=== PATIENT | female | born 1990 | race Two or more races ===

== ENCOUNTER 2024-10-22 12:19 | Emergency (ER) | payer MEDICAID, SELFPAY ==
[2024-10-22 12:21] VITALS: BMI 25.0
[2024-10-22 12:50] VITALS: BP 105/72; PULSE 97; RESP 16; TEMP 36.9; O2SAT 99; BMI 24.1
--- NOTE | 2024-10-22 12:51 | XR_ITS ---
Examination: Complete OB ultrasound, less than 14 weeks, transabdominal Date and time of exam: October 22, 2024 at 1435 hours INDICATIONS: Vaginal bleeding and pelvic pain onset today Technique: Obstetrical ultrasound images less than 14 weeks performed via transabdominal imaging Findings: A normal shaped single intrauterine gestation is present in the uterus. pole 3.5 cm corresponds to 10 weeks 3 days gestational age Cardiac motion 176 BPM Ultrasonographic survey of visible and placental structures unremarkable. Amniotic fluid volume appears appropriate for this estimated gestational age. Right ovary is obscured by bowel gas Left ovary 3.7 x 2.0 x 3.0 cm arterial flow IMPRESSION: Viable intrauterine gestation 10 weeks 3 days
[2024-10-22 13:13] LABS: Basophils % (Auto) 0 % (0-2.5); Eosinophils # (Auto) 0.1 Thou/mm3 (0.0-0.5); Eosinophils % (Auto) 1 % (0-10); Hemoglobin 12.9 g/dL (12.0-16.0); Immature Granulocytes % (Auto) 0 % (0-0); Immature Granulocytes Auto 0.04 Thou/mm3 (0.00-0.00); Lymphocytes # (Auto) 1.9 Thou/mm3 (1.0-4.8); Lymphocytes % (Auto) 21 % (10-50); Mean Corpuscular HGB Conc 33.9 g/dl (31.0-37.0); Mean Corpuscular Hemoglobin 29.6 pg (25.0-35.0); Mean Corpuscular Volume 87 fL (80-100); Monocytes # (Auto) 0.4 Thou/mm3 (0.0-0.8); Monocytes % (Auto) 4 % (0-12); Neutrophils # (Auto) 6.8 Thou/mm3 (1.8-7.7); Neutrophils % (Auto) 73 % (37-80); Nucleated Red Blood Cell % 0 /100 WBC (0); Platelet Count 371 Thou/mm3 (140-440); RDW Standard Deviation 42.1 fL (36.4-46.3); Red Blood Count 4.36 Miln/mm3 (4.00-5.20); White Blood Count 9.2 Thou/mm3 (3.6-11.0)
[2024-10-22 13:29] LABS: Collection Type, Urine Clean Catch
[2024-10-22 13:36] LABS: Alanine Aminotransferase 14 U/L (10-49); Albumin, Serum 4.8 gm/dL (3.5-5.0); Albumin/Globulin Ratio 1.5 (1.2-2.2); Alkaline Phosphatase 74 U/L (46-116); Anion Gap 9 (7-16); Aspartate Amino Transferase 12 U/L (0-34); BUN/Creatinine Ratio 14 Ratio (12-20); Bilirubin,Total 0.3 mg/dL (0.3-1.2); Blood Urea Nitrogen 10 mg/dL (9-23); Calcium 9.9 mg/dL (8.3-10.6); Calcium (Corrected) 9.9 mg/dL (8.5-10.1); Carbon Dioxide 23.4 mMol/L (20.0-31.0); Chloride 104 mMol/L (98-107); Creatinine (Component) 0.7 mg/dL (0.6-1.3); Estimated Creatinine Clearance 91.3 mL/min (>60); Globulin 3.1 gm/dL (2.3-3.5); Glucose 95 mg/dL (74-106); Osmolality,Calculated 270 (275-295); Sodium 136 mMol/L (136-145); Total Protein 7.9 gm/dL (5.7-8.2); eGFR > 60 See Note
[2024-10-22 13:44] LABS: Bilirubin,Urine Negative (Negative); Blood,Urine Negative (Negative); Clarity,Urine Clear (Clear/Hazy); Color,Urine Yellow (Lt Yel-Yel); Glucose, Urine Negative (Negative); Hyaline Casts,Urine < 1 /hpf (0-1); Ketones,Urine Negative (Negative); Leukocyte Esterase,Urine Positive (Negative); Nitrite,Urine Negative (Negative); Protein,Urine Trace (Neg - Trace); RBC,Urine 5 /hpf (0-3); Specific Gravity,Urine 1.032 (1.001-1.035); Squamous Epithelial Cell,Urine 5 /hpf (0-5); Urobilinogen,Urine Negative mg/dL (0.0-1.0); WBC,Urine 44 /hpf (0-5)
[2024-10-22 14:22] LABS: Beta HCG,Quantitative 115328 mIU/mL (<5.0)
--- NOTE | 2024-10-22 15:05 | EDNOTE_ITS ---
<Statement entered by Poonam New MD - 10/24/24 15:25> As co-signing physician, I was present and available for consult prn. I concur with the plan and care as documented by the midlevel provider. ED Abdominal Pain RME/HPI General Chief Complaint: Abdominal Pain Stated complaint: 11WK PREG AND IS HAVING BACK/ABD PAIN Time seen by provider: 10/22/24 12:51 Arrival date/time: 10/22/24 12:19 34-year-old female presents emergency department complaints of pelvic cramping and lower back pain patient reports being approximately 11 weeks Limitations: no limitations Related Data Previous Rx's ?Medication ?Instructions ?Recorded cephalexin 500 mg capsule 500 mg PO BID 7 days #14 caps 10/22/24 Allergies Allergy/AdvReac Type Severity Reaction Status Date / Time No Known Allergies Allergy Verified 10/22/24 12:23 Review of Systems Review of Systems Systems Reviewed: All systems reviewed, normal except as documented Constitutional Constitutional: Reports system reviewed and no additional complaints, except as documented, Denies fever(s) and Denies headache(s) Eyes Eyes: Reports system reviewed and no additional complaints, except as documented and Denies blurry vision ENT Ears, Nose, Mouth, and Throat: Reports system reviewed and no additional complaints, except as documented, Denies headache(s), Denies nasal congestion and Denies nasal discharge Cardiovascular Cardiovascular: Reports system reviewed and no additional complaints, except as documented, Denies chest pain and Denies dyspnea Respiratory Respiratory: Reports system reviewed and no additional complaints, except as documented, Denies chest congestion, Denies cough and Denies dyspnea Gastrointestinal Gastrointestinal: Reports system reviewed and no additional complaints, except as documented and Denies abdominal pain Genitourinary Genitourinary: Reports system reviewed and no additional complaints, except as documented, Denies abnormal vaginal bleeding and Reports other (Pelvic pain) Integumentary/Breasts Skin/Breast: Reports system reviewed and no additional complaints, except as documented and Denies rash Neurologic Neurologic: Reports system reviewed and no additional complaints, except as documented, Reports as per HPI and Denies headache(s) Past Medical History Social History SMOKING STATUS: Never smoker ED Exam General Limitations: Present no limitations General appearance: Present alert and in no apparent distress Head Head exam: Present atraumatic Eye Eye exam: Present normal appearance, PERRL and EOMI ENT ENT exam: Present normal exam, normal oropharynx and mucous membranes moist Neck Neck exam: Present normal inspection, full ROM and trachea midline Chest Chest inspection: Present normal inspection and symmetric chest wall rise Respiratory Respiratory exam: Present normal lung sounds bilaterally Cardiovascular Cardiovascular exam: Present regular rate, normal rhythm and normal heart sounds Abdominal Exam Abdominal exam: Present soft and normal bowel sounds; Absent distention, tenderness, guarding, rebound or rigidity Extremities Exam Extremities exam: Present normal inspection and full ROM Back Exam Back exam: Present normal inspection and full ROM Neurological Exam Neurological exam: Present alert, oriented X3 and CN II-XII intact Psychiatric Psychiatric exam: Present normal affect and normal mood Skin Skin exam: Present warm, dry, intact and normal color Course Quality Measures none Orders Category Date Time Status US OB <= 14 weeks fetus Stat Exams 10/22/24 12:51 Completed ABO/RH Type Stat Lab 10/22/24 12:57 Completed Beta HCG,Quantitative Stat Lab 10/22/24 12:57 Completed CBC Stat Lab 10/22/24 12:57 Completed Comprehensive Metabolic Panel Stat Lab 10/22/24 12:57 Completed UA [Urinalysis] Stat Lab 10/22/24 13:22 Completed Urine Culture Stat Lab 10/22/24 13:22 Received Vital Signs Vital signs: Vital Signs Temperature 98.5 F 10/22/24 12:50 Pulse Rate 97 10/22/24 12:50 Respiratory Rate 16 10/22/24 12:50 Blood Pressure 105/72 10/22/24 12:50 Pulse Oximetry (%) 99 10/22/24 12:50 Oxygen Delivery Method Room Air 10/22/24 12:50 O2 saturation 99% room air within normal limits Abdominal Pain MDM MDM Narrative MDM Narrative:: 34-year-old female presents emergency department complaints of pelvic cramping and lower back pain patient reports being approximately 11 weeks On exam patient well-appearing patient does not appear ill or toxic in no acute distress Lab work as well as ultrasound obtained lab work unremarkable other than patient has mild UTI patient will treat with course of antibiotics Ultrasound consistent with viable Patient discharged home in no distress 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 the next 24 to 48 hours and for any worsening symptoms to return to the ER immediately Patient data External records reviewed:: [facility] previous records Clinical information provided by:: patient Social determinants that could affect healthcare access:: none Patient has the following chronic illnesses:: None How is presenting disease/condition affected by chronic disease/condition?: no chronic disease Evaluation data The following diagnostics were reviewed and interpreted by me:: lab results and radiology exam(s) Lab and/or radiology exams considered but not ordered:: Labs radiology obtained Interpretation Summary: Reviewed by me Medications / Prescriptions Medications or Prescriptions considered but not ordered:: Given Medication administrations:: Given Consultations Consultation(s) initiated? (list below): No Diagnosis Differential diagnosis abdominal pain: abdominal pain and other (UTI, threatened ) Most likely diagnosis given after review of the tests above:: UTI Admission Indicated Admission indicated?: not indicated Admission Request Was there a request for admission?: No Disposition Plan Disposition Plan: Discharge Discharge Attestation Discharge Attestation: The patient and all family members were given an opportunity to ask questions and understood the discharge instructions. Discharge instructions specifically effects, indications for sooner follow up or return to the emergency department, and the expected course of current diagnosis. Patient condition: Stable Discharge Plan Plan Patient Disposition: HOME (Self Care) Disposition Comment: Stable Prescriptions/Referrals Prescriptions/Med Rec: New cephalexin 500 mg capsule 500 mg PO BID 7 Days Qty: 14 0RF Referrals: Seth Gray MD [Primary Care Provider] - 10/23/24 Problem List Clinical Impression: UTI (urinary tract infection) Patient/Caregiver Discharge Instructions Education Materials: Medicine for Pain Additional Instructions: Please follow up with your primary care doctor in the next 24-48hrs for any worsening symptoms return here immediately Print Language: Danish Stand Alone Forms: Adali Award Info., Patient Portal Info Letter SARAH/JABARI Supervising Physician PA/JABARI Supervising Physician: Dr. New
== END 2024-10-22 15:20 | disposition home or self-care (01) ==
PROVIDERS: Nurse Practitioner Primary Care; Emergency Provider Emergency Medicine; PCP Family Medicine
DX: O23.41 Unspecified infection of urinary tract in pregnancy, first trimester (principal); Z3A.11 11 weeks gestation of pregnancy
CPT/HCPCS: 36415; 76801; 80053; 81001; 84702; 85025; 86900; 86901; 87086; 99284

== ENCOUNTER 2024-12-16 12:36 | Emergency (ER) | payer MEDICAID, SELFPAY ==
[2024-12-16 12:37] VITALS: BMI 24.3
[2024-12-16 12:43] VITALS: BP 123/73; PULSE 93; RESP 19; TEMP 36.9; O2SAT 98
--- NOTE | 2024-12-16 13:12 | XR_ITS ---
Examination: Complete OB ultrasound greater than 14 weeks Date and time of exam: December 16, 2024 1320 hrs. Indications: Vaginal bleeding beginning 3 days ago Findings: Viable intrauterine single fetus with single amniotic sac presentation breech Cardiac motion evident Placenta anterior grade 1 Umbilical cord insertion 3 vessel seen Amniotic fluid index adequate Cervix 3.7 cm Ovaries obscured by bowel gas. Composite estimated gestational age based on BPD, head circumference, abdominal circumference, femur length is 18 weeks 1 day Estimated weight 208 g. Survey of intracranial anatomy, spinal anatomy, abdominal anatomy, four-chamber heart performed with no abnormalities identified. Impression: Viable intrauterine gestation breech presentation Cardiac motion 155 BPM.
--- NOTE | 2024-12-16 13:13 | PD.EDPREG ---
ED OB Contraction Preg RMI/HPI General Chief complaint: OB/Uterine Contractions Stated complaint: 19 weeks. Would like an US. No OBGYN Time Seen by Provider: 12/16/24 13:02 Source: patient Arrival date/time: 12/16/24 12:36 34-year-old female with no known medical history presents to the emergency room with a chief complaint of bilateral pelvic cramping. Patient is currently 19 weeks . Patient denies any vaginal bleeding. Mode of arrival: ambulatory Limitations: no limitations Related Data Previous Rx's ?Medication ?Instructions ?Recorded cephalexin 500 mg capsule 500 mg PO BID 7 days #14 caps 12/16/24 Allergies Allergy/AdvReac Type Severity Reaction Status Date / Time No Known Allergies Allergy Verified 10/22/24 12:23 Review of Systems Review of Systems Systems Reviewed: All systems reviewed, normal except as documented Constitutional Constitutional: Reports system reviewed and no additional complaints, except as documented, Denies fatigue, Denies fever(s), Denies headache(s) and Denies weakness Eyes Eyes: Reports system reviewed and no additional complaints, except as documented, Denies blurry vision and Denies change in vision ENT Ears, Nose, Mouth, and Throat: Reports system reviewed and no additional complaints, except as documented, Denies otalgia, Denies headache(s), Denies nasal congestion, Denies throat swelling and Denies vertigo Cardiovascular Cardiovascular: Reports system reviewed and no additional complaints, except as documented, Denies chest pain, Denies dyspnea and Denies dyspnea on exertion Respiratory Respiratory: Reports system reviewed and no additional complaints, except as documented, Denies chest congestion, Denies cough, Denies dyspnea, Denies dyspnea on exertion and Denies wheezing Gastrointestinal Gastrointestinal: Reports abdominal pain and Reports cramping Genitourinary Genitourinary: Reports system reviewed and no additional complaints, except as documented Musculoskeletal Musculoskeletal: Reports system reviewed and no additional complaints, except as documented and Denies back pain Integumentary/Breasts Skin/Breast: Reports system reviewed and no additional complaints, except as documented and Denies wounds Neurologic Neurologic: Reports system reviewed and no additional complaints, except as documented, Denies confusion, Denies headache(s), Denies lack of coordination, Denies vertigo and Denies weakness Psychiatric Psychiatric: Reports system reviewed and no additional complaints, except as documented, Denies anxiety, Denies confusion, Denies depression, Denies paranoia, Denies suicidal ideation and Denies tactile hallucinations Endocrine Endocrine: Reports system reviewed and no additional complaints, except as documented and Denies fatigue Hematologic/Lymphatic Hematologic/Lymphatic: Reports system reviewed and no additional complaints, except as documented and Denies lymphadenopathy Allergic/Immunologic Allergic/Immunologic: Reports system reviewed and no additional complaints, except as documented, Denies throat swelling, Denies urticaria and Denies wheezing Past Medical History Social History SMOKING STATUS: Never smoker ED Exam General Limitations: Present no limitations General appearance: Present alert and in no apparent distress Head Head exam: Present atraumatic Eye Eye exam: Present normal appearance, PERRL and EOMI ENT ENT exam: Present normal exam, normal oropharynx and mucous membranes moist Neck Neck exam: Present normal inspection, full ROM and trachea midline Chest Chest inspection: Present normal inspection and symmetric chest wall rise Respiratory Respiratory exam: Present normal lung sounds bilaterally Cardiovascular Cardiovascular exam: Present regular rate, normal rhythm and normal heart sounds Abdominal Exam Abdominal exam: Present soft, tenderness and normal bowel sounds Abdominal tenderness: Present RLQ, LLQ, suprapubic and mild Extremities Exam Extremities exam: Present normal inspection and full ROM Back Exam Back exam: Present normal inspection and full ROM Neurological Exam Neurological exam: Present alert, oriented X3 and CN II-XII intact Psychiatric Psychiatric exam: Present normal affect and normal mood Skin Skin exam: Present warm, dry, intact and normal color Course Quality Measures none Orders Category Date Time Status US OB >= 14 weeks Fetus Stat Exams 12/16/24 13:12 Completed ABO/RH Type Stat Lab 12/16/24 15:07 Completed Beta HCG,Quantitative Stat Lab 12/16/24 15:07 Completed CBC Stat Lab 12/16/24 15:07 Completed CMP [Comprehensive Metabolic Panel] Stat Lab 12/16/24 15:07 Completed UA [Urinalysis] Stat Lab 12/16/24 13:34 Completed Vital Signs Vital signs: Vital Signs Temperature 98.5 F 12/16/24 12:43 Pulse Rate 93 12/16/24 12:43 Respiratory Rate 19 12/16/24 12:43 Blood Pressure 123/73 12/16/24 12:43 Pulse Oximetry (%) 98 12/16/24 12:43 Oxygen Delivery Method Room Air 12/16/24 12:43 OB/Uterine Contractions MDM Narrative MDM Narrative:: 34-year-old female with no known medical history presents to the emergency room with a chief complaint of bilateral pelvic cramping. Patient is currently 19 weeks . Patient denies any vaginal bleeding. Patient is hemodynamically stable and in no apparent distress Physical examination shows bilateral pelvic cramping. Patient denies any vaginal bleeding vaginal discharge. Ultrasound OB was completed and shows a viable at 18 weeks and 1 day. heart tones are 155 bpm. hCG levels are at 11,471 Urinalysis shows a urinary tract infection. Antibiotics are sent to the patient's pharmacy Patient was discharged and educated to follow-up with primary care provider in the next 24 to 48 hours and return to the emergency room for any evidence of worsening signs or symptoms Patient data External records reviewed:: [facility] previous records Clinical information provided by:: patient Social determinants that could affect healthcare access:: none Patient has the following chronic illnesses:: No chronic illness How is presenting disease/condition affected by chronic disease/condition?: no chronic disease Evaluation data The following diagnostics were reviewed and interpreted by me:: lab results and radiology exam(s) Lab and/or radiology exams considered but not ordered:: Labs and radiology exams considered and ordered Interpretation Summary: Ultrasound OB-Findings: Viable intrauterine single fetus with single amniotic sac presentation breech Cardiac motion evident Placenta anterior grade 1 Umbilical cord insertion 3 vessel seen Amniotic fluid index adequate Cervix 3.7 cm Ovaries obscured by bowel gas. Composite estimated gestational age based on BPD, head circumference, abdominal circumference, femur length is 18 weeks 1 day Estimated weight 208 g. Survey of intracranial anatomy, spinal anatomy, abdominal anatomy, four-chamber heart performed with no abnormalities identified. Impression: Viable intrauterine gestation breech presentation Cardiac motion 155 BPM. Medications / Prescriptions Medications or Prescriptions considered but not ordered:: No medication given Medication administrations:: No medication given Consultations Consultation(s) initiated? (list below): No Diagnosis OB Contractions Differential Diagnosis: other (Urinary tract infection/spontaneous /vaginal bleeding/ectopic ) Most likely diagnosis given after review of the tests above:: Urinary tract infection Admission Indicated Admission indicated?: not indicated Explain why admission is indicated or not indicated:: N/A Admission Request Was there a request for admission?: No Disposition Plan Disposition Plan: Discharge Discharge Attestation Discharge Attestation: The patient and all family members were given an opportunity to ask questions and understood the discharge instructions. Discharge instructions specifically effects, indications for sooner follow up or return to the emergency department, and the expected course of current diagnosis. 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 Your heart tones are 155 bpm Your urinalysis showed a urinary tract infection. Antibiotics are sent to your pharmacy please pick them up and take them as indicated. For any evidence of worsening signs or symptoms return to the emergency room immediately Print Language: Amharic Stand Alone Forms: Adali Award Info., Patient Portal Info Letter SARAH/JABARI Supervising Physician SARAH/JABARI Supervising Physician: Dr. Thompson
[2024-12-16 13:45] LABS: Collection Type, Urine Clean Catch
[2024-12-16 13:59] LABS: Bacteria,Urine 2+; Bilirubin,Urine Negative (Negative); Blood,Urine Negative (Negative); Clarity,Urine Turbid (Clear/Hazy); Color,Urine Yellow (Lt Yel-Yel); Glucose, Urine Negative (Negative); Ketones,Urine Negative (Negative); Leukocyte Esterase,Urine Positive (Negative); Nitrite,Urine Negative (Negative); PH,Urine 5.5 (5.0-7.0); Protein,Urine Trace (Neg - Trace); RBC,Urine 12 /hpf (0-3); Specific Gravity,Urine 1.031 (1.001-1.035); Squamous Epithelial Cell,Urine 4 /hpf (0-5); Urobilinogen,Urine Negative mg/dL (0.0-1.0); WBC,Urine 57 /hpf (0-5)
[2024-12-16 15:47] LABS: Basophils % (Auto) 0 % (0-2.5); Eosinophils # (Auto) 0.1 Thou/mm3 (0.0-0.5); Eosinophils % (Auto) 1 % (0-10); Hematocrit 34.2 % (36.0-46.0); Hemoglobin 11.8 g/dL (12.0-16.0); Immature Granulocytes % (Auto) 1 % (0-0); Immature Granulocytes Auto 0.07 Thou/mm3 (0.00-0.00); Lymphocytes # (Auto) 2.2 Thou/mm3 (1.0-4.8); Lymphocytes % (Auto) 21 % (10-50); Mean Corpuscular HGB Conc 34.5 g/dl (31.0-37.0); Mean Corpuscular Hemoglobin 30.5 pg (25.0-35.0); Mean Corpuscular Volume 88 fL (80-100); Monocytes # (Auto) 0.4 Thou/mm3 (0.0-0.8); Monocytes % (Auto) 4 % (0-12); Neutrophils # (Auto) 7.5 Thou/mm3 (1.8-7.7); Neutrophils % (Auto) 73 % (37-80); Nucleated Red Blood Cell % 0 /100 WBC (0); Platelet Count 370 Thou/mm3 (140-440); RDW Standard Deviation 43.3 fL (36.4-46.3); Red Blood Count 3.87 Miln/mm3 (4.00-5.20); White Blood Count 10.3 Thou/mm3 (3.6-11.0)
[2024-12-16 16:48] LABS: Alanine Aminotransferase 21 U/L (10-49); Albumin, Serum 4.2 gm/dL (3.5-5.0); Albumin/Globulin Ratio 1.4 (1.2-2.2); Alkaline Phosphatase 65 U/L (46-116); Anion Gap 9 (7-16); Aspartate Amino Transferase 14 U/L (0-34); BUN/Creatinine Ratio 14 Ratio (12-20); Beta HCG,Quantitative 11471 mIU/mL (<5.0); Bilirubin,Total 0.3 mg/dL (0.3-1.2); Blood Urea Nitrogen 7 mg/dL (9-23); Calcium 9.5 mg/dL (8.3-10.6); Calcium (Corrected) 9.5 mg/dL (8.5-10.1); Carbon Dioxide 21.6 mMol/L (20.0-31.0); Chloride 107 mMol/L (98-107); Creatinine (Component) 0.5 mg/dL (0.6-1.3); Estimated Creatinine Clearance 138.2 mL/min (>60); Globulin 3.1 gm/dL (2.3-3.5); Glucose 78 mg/dL (74-106); Osmolality,Calculated 272 (275-295); Potassium 3.6 mMol/L (3.4-5.1); Sodium 138 mMol/L (136-145); Total Protein 7.3 gm/dL (5.7-8.2); eGFR > 60 See Note
== END 2024-12-16 17:21 | disposition home or self-care (01) ==
PROVIDERS: Nurse Practitioner Family; Emergency Provider Emergency Medicine; PCP Obstetrics & Gynecology
DX: O23.42 Unspecified infection of urinary tract in pregnancy, second trimester (principal); O32.1XX0 Maternal care for breech presentation, not applicable or unspecified; Z3A.19 19 weeks gestation of pregnancy
CPT/HCPCS: 36415; 76805; 80053; 81001; 84702; 85025; 86900; 86901; 99284

== ENCOUNTER 2025-03-24 20:06 | Observation (INO) | payer MEDICAID, SELFPAY ==
[2025-03-24 20:14] VITALS: TEMP 36.8
[2025-03-24 20:15] VITALS: BP 122/77; PULSE 88
--- NOTE | 2025-03-24 20:34 | XR_ITS ---
Examination: Complete OB ultrasound greater than 14 weeks Date and time of exam: March 24, 2025 2038 hours INDICATIONS: Onset vaginal bleeding today Findings: Viable intrauterine single fetus with single amniotic sac presentation cephalic Cardiac motion 150 BPM Placenta anterior grade 2 Umbilical cord insertion 3 vessel seen Amniotic fluid index 10.3 cm spine maternal right Cervix 3.2 cm Ovaries obscured by bowel gas. Composite estimated gestational age based on BPD, head circumference, abdominal circumference, femur length is 32 weeks 3 days Estimated weight 1904 g. Survey of intracranial anatomy, spinal anatomy, abdominal anatomy, four-chamber heart performed with no abnormalities identified. Impression: Viable intrauterine gestation cephalic presentation.
[2025-03-24 20:41] VITALS: BP 122/77; PULSE 90; RESP 100; RESP 19; TEMP 36.8; BMI 29.1
[2025-03-24 21:35] VITALS: BP 106/62; PULSE 80
[2025-03-24 21:50] LABS: Amphetamine/Metham Scrn,Ur OB Negative (Negative); Benzoylecgonine Screen, Ur OB Negative (Negative); Opiate Screen,Urine OB Negative (Negative); THC Screen,Urine OB Negative (Negative)
[2025-03-24 22:05] VITALS: BP 104/54; PULSE 78
[2025-03-24 22:35] VITALS: BP 107/53; PULSE 81
[2025-03-24 22:38] LABS: ROM Kit Lot # 578010271
[2025-03-24 22:39] LABS: ROM Swab Mixed By: BF; Rupture of Fetal Membranes Negative (Negative); Swb Mxed in Solvent 1 min? Yes
== END 2025-03-24 23:25 | disposition home or self-care (01) ==
PROVIDERS: Admitting Provider Obstetrics & Gynecology; Visit Provider Obstetrics & Gynecology
DX: O46.93 Antepartum hemorrhage, unspecified, third trimester (principal); Z3A.32 32 weeks gestation of pregnancy
CPT/HCPCS: 59025; 59899; 76805; 80307; 84112; 87081

== ENCOUNTER 2025-05-13 04:02 | Inpatient (IN) | payer MEDICAID, SELFPAY ==
[2025-05-13] VITALS (97 sets, daily range): BP systolic 98–138; BP diastolic 50–80; PULSE 66–166; RESP 16–99; TEMP 36.1–37; O2SAT 84–100; BMI 29.0
--- NOTE | 2025-05-13 04:26 | XR_ITS ---
Examination: Complete OB ultrasound greater than 14 weeks Date and time of exam: May 13, 2025 0451 hours INDICATIONS: Vaginal bleeding beginning a few hours ago Findings: Viable intrauterine single fetus with single amniotic sac presentation cephalic Cardiac motion 147 BPM Placenta anterior grade 3 Umbilical cord insertion 3 vessel seen Amniotic fluid index 6.9 cm Cervix 3.6 cm Ovaries obscured by bowel gas. Composite estimated gestational age based on BPD, head circumference, abdominal circumference, femur length is 38 weeks 6 days Estimated weight 3478.9 g. Survey of intracranial anatomy, spinal anatomy, abdominal anatomy, four-chamber heart performed with no abnormalities identified. Impression: Viable intrauterine gestation cephalic presentation Placenta anterior grade 3 no abruption.
[2025-05-13] MEDS: RINGERS LACTATED 1000 ML 1,000 ML 100 ML IV ×3 (04:35→10:52)
[2025-05-13 04:57] LABS: Basophils # (Auto) 0.1 Thou/mm3 (0.0-0.2); Basophils % (Auto) 1 % (0-2.5); Eosinophils # (Auto) 0.1 Thou/mm3 (0.0-0.5); Eosinophils % (Auto) 1 % (0-10); Hematocrit 34.7 % (36.0-46.0); Hemoglobin 11.6 g/dL (12.0-16.0); Immature Granulocytes Auto 0.09 Thou/mm3 (0.00-0.00); Lymphocytes # (Auto) 2.8 Thou/mm3 (1.0-4.8); Lymphocytes % (Auto) 24 % (10-50); Mean Corpuscular HGB Conc 33.4 g/dl (31.0-37.0); Mean Corpuscular Hemoglobin 30.2 pg (25.0-35.0); Mean Corpuscular Volume 90 fL (80-100); Monocytes # (Auto) 0.5 Thou/mm3 (0.0-0.8); Monocytes % (Auto) 5 % (0-12); Neutrophils # (Auto) 8.1 Thou/mm3 (1.8-7.7); Neutrophils % (Auto) 70 % (37-80); Nucleated Red Blood Cell # 0.00 Thou/mm3 (0.00-0.00); Nucleated Red Blood Cell % 0 /100 WBC (0); Platelet Count 329 Thou/mm3 (140-440); RDW Standard Deviation 45.6 fL (36.4-46.3); Red Blood Count 3.84 Miln/mm3 (4.00-5.20); White Blood Count 11.7 Thou/mm3 (3.6-11.0)
--- NOTE | 2025-05-13 05:45 | PC.NURSE ---
045 Consents signed using learning center instructor Mandy DE LEON1
--- NOTE | 2025-05-13 06:00 | PD.LDHP ---
Documentation for date of: 05/13/25 OB Labor/Induct. HPI History of Present Illness Chief complaint: Leaking and contractions. : 6 Para: 3 Term pregnancies: 3 pregnancies: 0 Living children: 3 History of Abortions: Spontaneous and Elective: 2 History of Vaginal deliveries: 3 History of sections: No History of : No Date of last menstrual period: 07/16/24 JUNIOR: 05/16/25 Gestational Age (weeks): 39 Gestational Age (days): 4 Gestational age based on last menstrual period: 43 History of present illness: 34 yo IUP 39w4d has care with Dr Pierce present to FLU at 0400 complaining of contractions and leaking since 21:00 yesterday. No vaginal bleeding. Normal movement. PNC complicated by first trimester subchorionic hemorrhage. EDC confirmed by a 7 week TVS. US today shows EFW 3579g and Cephalic. Comments: OB Hx x 2 at term, Miscarriage at 20 weeks. PSHx : D and C PMHx: Anxiety, Depression, PTSD, Chlamydia FHx: HTN, Endometrial Cancer, CVA Social Hx: Denies any ETOH, Drug use or SMO History of Present Adequate Care: Yes Labs Labs: Negative: RPR, Hepatitis B, Rubella Titre, HIV, Chlamydia, Gonorrhea and Group Beta Strep and Unknown: Herpes Type 1 and Herpes Type 2 Review of Systems Review of Systems Narrative Review of Systems: Denies chest pain, palpitations, shortness of breath, flank pain, fever, cough or lower extremity pain . Past Medical History Surgical History SURGICAL: Negative Section Meds Home Medications and Allergies Home Medications ?Medication ?Instructions ?Recorded ?Confirmed ?Type No Known Home Medications 05/13/25 05/13/25 History Allergies Allergy/AdvReac Type Severity Reaction Status Date / Time No Known Allergies Allergy Verified 05/13/25 04:45 OB Exam Physical Exam Vital signs: Temp Pulse Resp BP 96.9 F 72 18 109/65 05/13/25 05:16 05/13/25 05:51 05/13/25 04:15 05/13/25 05:51 Routine HEENT Exam Comments: Oropharynx sclera clear. Routine Respiratory Exam Comments: CTA B/L Routine Cardiovascular Exam Comments: RRR Routine Abdominal Exam Comments: gravid term size with EFW 3579g. Detailed Labor and Delivery Exam Dilation (cm): 2 Effacement (%): 60 station: -3 Presentation: Vertex Membranes: ruptured Comments: Per RN exam. Routine Extremities Exam Comments: Nontender Routine Skin Exam Comments: No gross rashes or lesions Routine Neurological Exam Comments: No focal deficit OB Results Labs 05/13/25 04:35 Labs: Short CBC 05/13/25 Range/Units 04:35 WBC 11.7 H (3.6-11.0) Thou/mm3 Hgb 11.6 L (12.0-16.0) g/dL Hct 34.7 L (36.0-46.0) % Plt Count 329 (140-440) Thou/mm3 Impressions Impression: IUP 39w4d SROM at 21:00 on 05/12 Not in Labor Cervical ripening with oral Cytotec followed by Pitocin Anticipate Informed Consent Obtained: Pt made aware of the risks and complications of OVD and C/S and agrees with these mode of delivery if indicated.
--- NOTE | 2025-05-13 06:04 | PRELIM_ITS ---
Obstetric ultrasound. May 13, 2025 0451 hours Clinical history: COMPLETE OB U/S No prior study is available for comparison. Findings: There is a gravid uterus with a live fetus in cephalic presentation of mean gestational age 38 weeks and 6 days (by biometry). cardiac activity is present at a heart rate of 147 beats per minute. The placenta is anterior in location, maturity grade 3. There is no evidence of placenta previa or retroplacental hemorrhage. Amniotic fluid is adequate (CAROL = 6.9 cm). Estimated weight is 3478.9 grams+/- 515 grams. Estimated due date by ultrasound is 05/21/2025. Cervical length is 3.6 cm. Ovaries are not seen due to gestation age. Impression: Gravid uterus with a single live fetus in cephalic presentation of mean gestational age 38 weeks 6 days. Report Electronically Signed By: Aiyana Gonzalez 05/13/2025 6:03:49 AM [EST]
[2025-05-13 06:35] LABS: Syphilis Nonreactive (Nonreactive)
[2025-05-13] MEDS: fentaNYL CIT INJ 50 mCg/ML AMP 2ML 100 MCG IVP ×2 (07:55→11:31)
[2025-05-13] MEDS: FAMOTIDINE INJ 10 MG/ML VIAL 2 ML 20 MG IV (16:20)
[2025-05-13] MEDS: ceFAZolin/D5W 2 GM IV 2 GM/100 ML BAG IV (16:20)
[2025-05-13] MEDS: MINERAL OIL 30 ML UDC TOP (16:32)
[2025-05-13] MEDS: OXYTOCIN in NS 20 units 20 UNIT/1,000 ML BAG 125 UNIT IV (16:33)
[2025-05-13] MEDS: TRANEXAMIC ACID 1,000 MG IVPB 1,000 MG/100 ML BAG 200 MG IV (16:35)
--- NOTE | 2025-05-13 16:48 | PD.LDDELS ---
Data ([place]) Data Hx Section: No : 6 Term: 3 : 0 Livin Abortions: Spontaneous & Theraputic: 2 Delivery Data ([place]) Labor Data Initiation of labor: Induction Induction/Augmentation Agent: Cytotec-PO ROM date: 05/12/25 ROM time: 21:00 Amniotic membrane rupture type: Spontaneous Amniotic fluid description: Clear Delivery Data Onset of labor date: 05/12/25 Onset of labor time: 21:00 Complete dilation date: 05/13/25 Complete dilation time: 16:30 delivery date: 05/13/25 delivery time: 16:33 Placenta delivery date: 05/13/25 Placenta delivery time: 16:35 Stage 1 total time: Labor - Stage 1 Duration 19 hours and 30 minutes Delivered by: Gallo Lugo Pillar Man at delivery: No Delivery Method Delivery method: Normal Vaginal Delivery Presentation: Vertex position: CHARLES Anesthesia Type Anesthesia Type: Epidural Delivery Room Medications Delivery room medications: Pitocin 20 u IV Placenta Placenta delivery description: Spontaneous Cord blood sent to lab: Yes cord blood collection: Cord Blood Type Episiotomy Episiotomy description: None Lacerations #1: Perineal: 1st degree Periurethral: Left periurethral Perineal repair Sutures used for repair: 3.0 Vicryl EBL Estimated blood loss (ml): 250 Umbilical Cord cord description: 3 Vessels Data ([place]) [place] Data [place]'s gender: Male 1 minute: 9 5 minutes: 9
[2025-05-13] MEDS: BENZO/LANO/ALOE (Dermoplast) 60 GM CAN 1 SPRAY TOP (16:57)
[2025-05-13] MEDS: IBUPROFEN TAB 400 MG TABLET 800 MG PO (20:01)
[2025-05-14] MEDS: ACETAMINOPHEN 325 MG TABLET 650 MG PO ×2 (01:12→07:13)
[2025-05-14] MEDS: IBUPROFEN TAB 400 MG TABLET 800 MG PO ×2 (03:46→14:54)
[2025-05-14 04:00] VITALS: BP 108/65; PULSE 86; RESP 16; TEMP 37.1
[2025-05-14 07:05] LABS: Basophils # (Auto) 0.0 Thou/mm3 (0.0-0.2); Basophils % (Auto) 0 % (0-2.5); Eosinophils # (Auto) 0.1 Thou/mm3 (0.0-0.5); Eosinophils % (Auto) 1 % (0-10); Hematocrit 32.8 % (36.0-46.0); Hemoglobin 11.0 g/dL (12.0-16.0); Immature Granulocytes Auto 0.09 Thou/mm3 (0.00-0.00); Lymphocytes # (Auto) 2.4 Thou/mm3 (1.0-4.8); Lymphocytes % (Auto) 15 % (10-50); Mean Corpuscular HGB Conc 33.5 g/dl (31.0-37.0); Mean Corpuscular Hemoglobin 30.3 pg (25.0-35.0); Mean Corpuscular Volume 90 fL (80-100); Monocytes # (Auto) 0.7 Thou/mm3 (0.0-0.8); Monocytes % (Auto) 4 % (0-12); Neutrophils # (Auto) 12.5 Thou/mm3 (1.8-7.7); Neutrophils % (Auto) 79 % (37-80); Nucleated Red Blood Cell # 0.00 Thou/mm3 (0.00-0.00); Nucleated Red Blood Cell % 0 /100 WBC (0); Platelet Count 292 Thou/mm3 (140-440); RDW Standard Deviation 45.8 fL (36.4-46.3); Red Blood Count 3.63 Miln/mm3 (4.00-5.20); White Blood Count 15.8 Thou/mm3 (3.6-11.0)
[2025-05-14 08:00] VITALS: BP 102/68; PULSE 80; RESP 16; TEMP 36.7; O2SAT 99
[2025-05-14] MEDS: DOCUSATE SOD 100 MG CAPSULE PO (08:26)
[2025-05-14 12:00] VITALS: BP 111/70; PULSE 79; RESP 16; TEMP 36.8; O2SAT 98
--- NOTE | 2025-05-14 15:36 | PC.NURSE ---
cleared by Raf from social service
[2025-05-14 15:53] VITALS: BP 121/75; PULSE 87; RESP 18; TEMP 36.7; O2SAT 98
--- NOTE | 2025-05-14 16:28 | PC.SS ---
DIRECTOR OF ROOMS conducted bedside contact with the patient to address nursing referral indicating patient possessed history of anxiety.? DIRECTOR OF ROOMS introduced self and role.? At bedside with patient was Stevo MORA.? Patient gave permission for FOB to be present during discussion.? Patient confirmed history of anxiety.? Patient informed DIRECTOR OF ROOMS of participation with counseling to address mood disorder.? Patient has been participating with therapy for approximately 1 year.? Patient has not been prescribed medication to address anxiety.? Per patient, level of anxiety has not impaired daily functioning.? Patient denies history of self-harm behaviors or psychiatric placement.? Patient?s partner confirmed that patient?s level of anxiety is not impacting daily functioning in an adverse manner.? Infant, Chandler; is the patient?s 4th child.? Other children ages 16, 15 and 4 years old.? Infant delivered naturally.? Patient interacting appropriately with .? OB services provided by [facility].? Patient reports compliance with OB appointments.? Patient plans on breast feeding the .? Patient is aligned with WIC, SNAP and TANF.? Patient denies history of alcohol/drug abuse.? Patient denies episodes of domestic violence.? Patient denies history of CWS intervention.? Patient has access to appropriate supplies and equipment.? Patient has access to car seat.? FOB will provide transportation upon discharge.? Patient describes possessing support system consisting of FOB and extended family.? DIRECTOR OF ROOMS provided community resources to include [employer] and [employer].? No further intervention required at this time, social security benefits interviewer will be available to address any further concerns.? DIRECTOR OF ROOMS updated bedside nurse.?
[2025-05-14 19:47] VITALS: BP 123/81; PULSE 76; RESP 16; TEMP 36.8; O2SAT 98
--- NOTE | 2025-05-14 20:21 | ESPR_ITS ---
Subjective Subjective Interval history: The patient is a 34-year-old G6 now P4014 status post vaginal delivery by Dr. Lugo around 5 PM yesterday. All care is Dr. Pierce. She is resting comfortably in bed. She is day #1, she is breast-feeding her baby and wearing her own pajamas. Her father the baby is at bedside. She is Swedish-speaking only and her entire physical exam and interview was conducted with the theatrical variety agent at bedside. Patient denies any heavy bleeding. Her pain is controlled with oral pain medication she is voiding ambulating and tolerating a general diet. Her labs and vital signs are stable. Exam Vital Signs Temp Pulse Resp BP Pulse Ox O2 Del Method 98.2 F 76 16 123/81 98 Room Air 05/14/25 19:47 05/14/25 19:47 05/14/25 19:47 05/14/25 19:47 05/14/25 19:47 05/14/25 19:47 Narrative Exam Fundus firm at umbilicus extremities show no significant edema or erythema Objective Labs 05/14/25 06:50 Labs: Laboratory Results - last 24 hr 05/14/25 06:50 WBC 15.8 H RBC 3.63 L Hgb 11.0 L Hct 32.8 L MCV 90 MCH 30.3 MCHC 33.5 RDW Std Deviation 45.8 Plt Count 292 D Neut % (Auto) 79 Lymph % (Auto) 15 [place] % (Auto) 4 Eos % (Auto) 1 Baso % (Auto) 0 Neut # (Auto) 12.5 H Lymph # (Auto) 2.4 [place] # (Auto) 0.7 Eos # (Auto) 0.1 Baso # (Auto) 0.0 Immature Gran # (Auto) 0.09 H Absolute Nucleated RBC 0.00 Immature Gran % 1 H Nucleated RBC % 0 Assessment & Plan Problem List (1) care following vaginal delivery: Problem details: Patient will be discharged day #1 in stable condition. Discharge instructions included pelvic rest x 6 weeks. Call for heavy bleeding, fevers, chills, severe depression. Follow-up with Dr. Pierce for care. Status: Acute Time Spent With Patient Time: Total time spent is greater than 50% in coordination of care (as documented) at patient's floor/unit and/or counseling patient: Time with patient: less than 15 minutes
--- NOTE | 2025-05-14 20:24 | PD.LDDS ---
DS: Providers Provider Date of admission: 05/13/25 04:24 Primary care physician: Physician No Primary/Family Admitting Provider: Rishi Cisneros MD Attending Provider on Admission: Gallo Lugo MD Consults: 05/13/25 17:18 Referral Routine Comment: Attending Provider on DC: Mell [facility]br[facility] ([facility]) Discharging Provider: Mell Zambrano MD ([facility]) Anticipated date of discharge: 05/14/25 DS: Diagnosis Discharge Diagnosis (1) Term delivered: Status: Acute (2) care following vaginal delivery: Status: Acute Problem List Completed Was Problem List Reviewed/Reconciled?: Yes Summary/Hosp Course Brief History: 34 yo IUP 39w4d has care with Dr Pierce present to [facility] at 0400 complaining of contractions and leaking since 21:00 yesterday. No vaginal bleeding. Normal movement. PNC complicated by first trimester subchorionic hemorrhage. EDC confirmed by a 7 week TVS. US today shows EFW 3579g and Cephalic. See h and P for further details. The patient went on to progress to complete and delivered 05/13/2025 around 1700. She delivered by Dr. Lugo. Please see delivery notes for further details. Her course was uncomplicated. Her pre and postdelivery hemoglobin were stable as were vital signs. She was ambulating tolerating a general diet voiding and breast-feeding normally. She was discharged day #1 in stable condition Peripartum Data Delivery Method: Normal Vaginal Delivery Episiotomy Description: None Laceration Description: see Delivery Summary Procedures: Procedures Operation Date: 05/13/25 16:45 <No data on this case meets the specified criteria> complications: none Status at Discharge Cognitive/behavioral status at discharge: Alert and oriented x 3 Functional status at discharge: independent ambulation Overall status at discharge: patient is progressing back to baseline Time Spent with Patient Time attestation: Total time spent providing and/or coordinating discharge services: Time spent: Less than 30 minutes Specific discharge activities: Pelvic rest x 6 weeks. Exam Vital Signs Temp Pulse Resp BP Pulse Ox O2 Del Method 98.2 F 76 16 123/81 98 Room Air 05/14/25 19:47 05/14/25 19:47 05/14/25 19:47 05/14/25 19:47 05/14/25 19:47 05/14/25 19:47 Narrative Exam Fundus firm at umbilicus. Extremities show no significant edema or erythema. Discharge Plan Plan Patient Disposition: HOME (Self Care) Patient condition on transfer: Stable Prescriptions/Referrals Prescriptions/Med Rec: New acetaminophen 325 mg Tablet 650 mg PO Q6HR PRN (Reason: Patient rated pain of 3) Qty: 60 0RF ibuprofen 400 mg Tablet 800 mg PO Q8HR PRN (Reason: Pain Scale 4-6 (Moderate) Qty: 60 0RF docusate sodium 100 mg Capsule 100 mg PO QDAY Qty: 60 0RF Referrals: dr pierce [Other] No Primary/Family,Physician [Primary Care Provider] - Patient/Caregiver Discharge Instructions Discharge Activity: activity as tolerated Other Discharge Activity Instructions:: Pelvic rest x 6 weeks Other Discharge Diet Instructions: General Diet Education Materials: After a Vaginal , After Delivery Concerns, Breast Care After , Feel Healthy After Print Language: Amharic Stand Alone Forms: [facility] Award Info., Patient Portal Info Letter Discharge Order Discharge Orders: Discharge (Routine); Ordered 05/14/25 Ordered By: Mell Zambrano ([facility]) Planned Discharge Date 05/14/25
== END 2025-05-14 20:58 | disposition home or self-care (01) | DRG 560 ==
LOC: S4SX 16:48 → S4NX 19:18
PROVIDERS: Admitting Provider Specialist; Visit Provider Obstetrics & Gynecology
DX: O42.02 Full-term premature rupture of membranes, onset of labor within 24 hours of rupture (principal); O70.0 First degree perineal laceration during delivery; Z3A.39 39 weeks gestation of pregnancy; Z37.0 Single live birth
CPT/HCPCS: 36415; 59409; 76805; 84112; 85025; 86780; 86850; 86900; 86901; 94762; J0689; J2590; J2795; J3010; J3490; J7120; A9270